=== PATIENT | male | born 1945 | race Caucasian/White ===

== ENCOUNTER 2021-09-16 07:53 | Emergency (ER) | payer MEDICARE, BC ==
[~2021-09-16] VITALS: Ht 177.8 cm; Wt 94.8 kg
[2021-09-16 07:55] VITALS: BP 156/81
[2021-09-16] MEDS ORDERED: PHENYLEPHRINE 0.5% NASAL SPRAY 15 ML BOTTLE NS ONE (08:04)
[2021-09-16] MEDS ORDERED: OXYMETAZOLINE HCL NASAL SPRAY 30 ML BOTTLE NS ONE ×2 (08:05→08:30)
[2021-09-16] MEDS ORDERED: LIDOCAINE VISCOUS 2% UD 15 ML UDC ONE (08:50)
[2021-09-16] MEDS ORDERED: LIDOCAINE VISCOUS 2% UD 15 ML UDC MM ONE (09:00)
[2021-09-16] MEDS ORDERED: CEPH500T PO (09:04)
--- NOTE | 2021-09-16 09:29 | NUR ---
Patient discharged to home in stable condition. Written and verbal after care instructions given. Patient verbalizes understanding of instruction.
== END 2021-09-16 09:30 | disposition home or self-care (01) ==
LOC: ER 07:59
DX: R04.0 Epistaxis (principal); I10 Essential (primary) hypertension; I48.91 Unspecified atrial fibrillation